=== PATIENT | female | born 1995 | race Caucasian/White ===

== ENCOUNTER 2016-08-01 23:53 | Emergency (ER) | payer MEDICAID, SELFPAY ==
[2016-08-02] MEDS ORDERED: Tetracaine 0.5% OPHTH SOLN/PF 4 ML BOT ONE (00:26)
[2016-08-02] MEDS ORDERED: Neomycin/Polymyxin/HC Otic Solution 10 ML BOT ONE (00:31)
== END 2016-08-02 00:55 | disposition home or self-care (01) ==
LOC: MADERS 23:53
DX: H60.92 Unspecified otitis externa, left ear (principal); L55.0 Sunburn of first degree
CPT/HCPCS: 99282